=== PATIENT | female | born 1950 | race Caucasian/White ===

== ENCOUNTER 2017-07-25 08:10 | Outpatient (CLI) | payer OTHER | END 2017-07-25 08:22 | disposition home or self-care (01) | LOC: LAB 08:10 | DX: D68.0 Von Willebrand disease (principal); D68.4 Acquired coagulation factor deficiency; D68.311 Acquired hemophilia; N32.89 Other specified disorders of bladder; D04.11 Carcinoma in situ of skin of right eyelid, including canthus; D68.8 Other specified coagulation defects ==

== ENCOUNTER → 2017-09-08 | Outpatient (CLI) | payer OTHER | END | disposition home or self-care (01) | LOC: LAB 10:08 | DX: D68.0 Von Willebrand disease (principal); D68.4 Acquired coagulation factor deficiency; D68.311 Acquired hemophilia; N32.89 Other specified disorders of bladder; D04.11 Carcinoma in situ of skin of right eyelid, including canthus; D50.8 Other iron deficiency anemias; D51.8 Other vitamin B12 deficiency anemias; I10 Essential (primary) hypertension; D68.8 Other specified coagulation defects ==

== ENCOUNTER 2017-12-02 08:37 | Outpatient (CLI) | payer OTHER | END 2017-12-02 11:53 | disposition home or self-care (01) | LOC: LAB 08:37 | DX: Z01.812 Encounter for preprocedural laboratory examination (principal); Z01.811 Encounter for preprocedural respiratory examination; Z01.810 Encounter for preprocedural cardiovascular examination ==

== ENCOUNTER 2017-12-23 05:39 | Day surgery (SDC) | payer OTHER ==
[2017-12-23] MEDS ORDERED: MACROBID 100 M100 MG PO (11:03)
[2017-12-23] MEDS ORDERED: TYLENOL-CODEINE1 TA1 PO (11:04)
== END 2017-12-23 13:00 | disposition home or self-care (01) ==
LOC: CIR.AMB 05:39
DX: N81.3 Complete uterovaginal prolapse (principal)

== ENCOUNTER 2022-04-19 09:01 | Outpatient (CLI) | payer OTHER ==
[~2022-04-19 09:01] MED LIST: MACROBID 100 M100 MG PO; TYLENOL-CODEINE1 TA1 PO
== END 2022-04-19 09:02 | disposition home or self-care (01) ==
LOC: LAB 09:01
PROVIDERS: ATTEND Internal Medicine Hematology & Oncology
DX: D50.8 Other iron deficiency anemias (principal); I10 Essential (primary) hypertension; R74.02 Elevation of levels of lactic acid dehydrogenase [LDH]; K76.89 Other specified diseases of liver; D51.8 Other vitamin B12 deficiency anemias; D68.8 Other specified coagulation defects; D69.1 Qualitative platelet defects; D55.9 Anemia due to enzyme disorder, unspecified; C56.9 Malignant neoplasm of unspecified ovary; R97.8 Other abnormal tumor markers; R97.1 Elevated cancer antigen 125 [CA 125]; R97.0 Elevated carcinoembryonic antigen [CEA]; D68.4 Acquired coagulation factor deficiency; D68.311 Acquired hemophilia; N32.89 Other specified disorders of bladder; D68.00 Von Willebrand disease, unspecified; D66 Hereditary factor VIII deficiency

== ENCOUNTER 2022-07-30 06:49 | Outpatient (CLI) | payer OTHER | END 2022-07-30 06:50 | disposition home or self-care (01) | LOC: LAB 06:49 | PROVIDERS: ATTEND Internal Medicine Hematology & Oncology | DX: D68.00 Von Willebrand disease, unspecified (principal); D68.4 Acquired coagulation factor deficiency; D68.311 Acquired hemophilia; N32.89 Other specified disorders of bladder; D68.8 Other specified coagulation defects; D68.1 Hereditary factor XI deficiency; D68.2 Hereditary deficiency of other clotting factors ==